=== PATIENT | female | born 1940 | race Caucasian/White ===

== ENCOUNTER 2022-01-31 05:48 | Inpatient (IN) ==
[2022-01-31] MEDS ORDERED: LACTATED RINGERS 1,000 ML IV SCH (06:00)
[2022-01-31] MEDS ORDERED: VANCOMYCIN INJ 1,000 MG in SODIUM CHLORIDE 0.9% 250 ML IV ONE (06:30)
[2022-01-31 07:24] LABS: Mucus,Urine Occasional /LPF (Occasional); RBC,Urine 1 /HPF (0-4); Squamous Epithelial Cell,Urine Occasional /HPF (0-10); Urine Appearance Clear (Clear); Urine Color Yellow (Yellow); Urine pH 5.5 (4.5-8.0)
[2022-01-31 07:25] LABS: Bilirubin,Urine Negative (Negative); Blood, Urine Negative (Negative); Glucose,Urine (UA) Negative (Negative); Ketones,Urine Negative (Negative); Nitrite,Urine Negative (Negative); Protein,Urine Negative (Negative); Urine Urobilinogen 0.2 eU/dL (<2.0)
[2022-01-31 07:30] LABS: PT Patient Result 10.9 SECS (10.1-12.1); Partial Thromboplastin Time 29.6 SECS (23.7-32.9)
[2022-01-31] MEDS ORDERED: BUPIVACAINE SPINAL 0.75% 2 ML AMP SPINAL ONE (08:20)
[2022-01-31] MEDS ORDERED: buprenorphine HCL 0.3 MG/ML VIAL ONE (08:20)
[2022-01-31] MEDS ORDERED: KETAMINE 500 MG/10 ML VIAL ONE (08:20)
[2022-01-31] MEDS ORDERED: fentaNYL 100 MCG/2 ML VIAL ONE (08:20)
[2022-01-31] MEDS ORDERED: SODIUM CHLORIDE 0.9% 250 ML IV ONE (08:20)
[2022-01-31] MEDS ORDERED: TRANEXAMIC ACID 1,000 MG/10 ML VIAL ONE (08:20)
[2022-01-31] MEDS ORDERED: MIDAZOLAM 2 MG/2 ML VIAL ONE (08:20)
[2022-01-31] MEDS ORDERED: ONDANSETRON 4 MG/2 ML VIAL ONE (08:20)
[2022-01-31] MEDS ORDERED: propofoL 200 MG/20 ML VIAL IV ONE (08:20)
[2022-01-31] MEDS ORDERED: LIDOCAINE 2% 5 ML VIAL ONE (08:20)
[2022-01-31] MEDS ORDERED: FAMOTIDINE 20 MG TABLET PO STA (09:05)
[2022-01-31] MEDS ORDERED: DEXAMETHASONE 4 MG/1 ML VIAL ONE (09:21)
[2022-01-31] MEDS ORDERED: ROPIVACAINE 0.5% 30 ML VIAL ONE (09:21)
[2022-01-31] MEDS ORDERED: MAGNESIUM HYDROXIDE SUSP 30 ML UDCUP PO PRN (10:23)
[2022-01-31] MEDS ORDERED: diphenhydrAMINE CAP 25 MG CAPSULE PO PRN (10:23)
[2022-01-31] MEDS ORDERED: ZALEPLON 5 MG CAPSULE PO PRN (10:23)
[2022-01-31] MEDS ORDERED: ONDANSETRON 4 MG/2 ML VIAL IV PRN (10:23)
[2022-01-31] MEDS ORDERED: MORPHINE 2 MG/1 ML SYRINGE IV PRN ×2 (10:23)
[2022-01-31] MEDS ORDERED: PHENYLEPHRINE 1 MG/10 ML SYRINGE IV ONE ×2 (10:41→11:19)
[2022-01-31] MEDS ORDERED: LACTATED RINGERS 1,000 ML IV ONE (10:41)
[2022-01-31] MEDS ORDERED: ACETAMINOPHEN INJ 1,000 MG/100 ML VIAL IV ONE (10:41)
[2022-01-31] MEDS ORDERED: GLYCOPYRROLATE 0.4 MG/2 ML VIAL ONE (11:07)
[2022-01-31] MEDS ORDERED: BACITRACIN OINT 0.9 GM PACK TOP ONE (11:20)
[2022-01-31] MEDS: LACTATED RINGERS 1,000 ML IV SCH ×2 (13:35→19:40)
[2022-01-31] MEDS: KETOROLAC 15 MG/1 ML VIAL IV SCH ×3 (13:56→22:07)
[2022-01-31] MEDS: DOCUSATE SODIUM 100 MG CAPSULE PO SCH (21:17)
[2022-02-01 02:48] LABS: Basophils % 0.3 % (0.0-0.8); Hematocrit 33.1 VOL% (35.7-47.0); Hemoglobin 10.8 GM/DL (12.0-16.0); Immature Granulocytes % 0.5 %; Immature Granulocytes Absolute 0.06 #; Lymphocytes # 1.9 10*3/uL (1.4-4.0); Lymphocytes % 16.8 % (21.3-54.2); Mean Corpuscular HGB Conc 32.6 GM/DL (32-36); Mean Corpuscular Volume 94.6 FL (87-102); Monocytes # 0.9 10*3/uL (0.11-0.8); Monocytes % 8.3 % (1.7-12.7); Neutrophils % 74.1 % (38.7-73.9); Platelet Count 175 T/CUMM (130-400); Red Cell Distribution Width 13.1 % (9.3-17.3); White Blood Count 11.2 T/CUMM (4-12)
[2022-02-01 03:04] LABS: Calcium 9.3 MG/DL (8.5-10.1); Osmolality,Calculated 283.4 MOS/KG (273-304); Potassium 3.9 MMOL/L (3.5-5.1)
[2022-02-01] MEDS: FONDAPARINUX 2.5 MG/0.5 ML SYRINGE SUBCUT SCH (04:43)
[2022-02-01] MEDS: CITALOPRAM 20 MG TABLET PO SCH (09:30)
[2022-02-01] MEDS: DOCUSATE SODIUM 100 MG CAPSULE PO SCH ×2 (09:30→21:25)
[2022-02-01] MEDS: ROSUVASTATIN 10 MG TABLET PO SCH (09:31)
[2022-02-01] MEDS: NICOTINE 14 MG/24 HR PATCH TRANSDERM SCH (09:31)
[2022-02-01] MEDS: LOSARTAN 50 MG TABLET PO SCH (09:32)
[2022-02-01] MEDS: PANTOPRAZOLE 40 MG TABLET PO SCH (09:32)
[2022-02-01] MEDS: hydroCHLOROthiazide 12.5 MG CAPSULE PO SCH (09:32)
[2022-02-01] MEDS: LACTATED RINGERS 1,000 ML IV SCH (12:48)
[2022-02-02 03:28] LABS: Basophils # 0.1 10*3/uL (0.0-0.2); Basophils % 0.5 % (0.0-0.8); Eosinophils # 0.3 10*3/uL (0.0-0.87); Eosinophils % 2.8 % (0.00-10.9); Hematocrit 32.1 VOL% (35.7-47.0); Hemoglobin 10.5 GM/DL (12.0-16.0); Immature Granulocytes % 0.5 %; Immature Granulocytes Absolute 0.05 #; Lymphocytes # 2.6 10*3/uL (1.4-4.0); Lymphocytes % 25.7 % (21.3-54.2); Mean Corpuscular HGB Conc 32.7 GM/DL (32-36); Mean Corpuscular Volume 93.9 FL (87-102); Mean Platelet Volume 11.5 FL (9.6-12.0); Monocytes # 1.3 10*3/uL (0.11-0.8); Monocytes % 12.7 % (1.7-12.7); Neutrophils % 57.8 % (38.7-73.9); Platelet Count 161 T/CUMM (130-400); Red Blood Count 3.42 MC/CUMM (3.8-5.5); Red Cell Distribution Width 13.2 % (9.3-17.3); White Blood Count 10.2 T/CUMM (4-12)
[2022-02-02] MEDS: FONDAPARINUX 2.5 MG/0.5 ML SYRINGE SUBCUT SCH (04:44)
[2022-02-02] MEDS: ROSUVASTATIN 10 MG TABLET PO SCH (08:47)
[2022-02-02] MEDS: LOSARTAN 50 MG TABLET PO SCH (08:48)
[2022-02-02] MEDS: PANTOPRAZOLE 40 MG TABLET PO SCH (08:48)
[2022-02-02] MEDS: hydroCHLOROthiazide 12.5 MG CAPSULE PO SCH (08:48)
[2022-02-02] MEDS: DOCUSATE SODIUM 100 MG CAPSULE PO SCH ×2 (08:48→20:32)
[2022-02-02] MEDS: CITALOPRAM 20 MG TABLET PO SCH (08:48)
[2022-02-02] MEDS: NICOTINE 14 MG/24 HR PATCH TRANSDERM SCH (10:50)
[2022-02-03] MEDS: FONDAPARINUX 2.5 MG/0.5 ML SYRINGE SUBCUT SCH (04:54)
[2022-02-03 06:02] LABS: Basophils % 0.3 % (0.0-0.8); Eosinophils # 0.1 10*3/uL (0.0-0.87); Eosinophils % 1.3 % (0.00-10.9); Hemoglobin 11.3 GM/DL (12.0-16.0); Immature Granulocytes % 0.5 %; Immature Granulocytes Absolute 0.05 #; Lymphocytes % 21.3 % (21.3-54.2); Mean Corpuscular HGB Conc 33.2 GM/DL (32-36); Mean Corpuscular Volume 92.4 FL (87-102); Mean Platelet Volume 11.5 FL (9.6-12.0); Monocytes % 10.6 % (1.7-12.7); Platelet Count 171 T/CUMM (130-400); Red Blood Count 3.68 MC/CUMM (3.8-5.5); Red Cell Distribution Width 12.8 % (9.3-17.3); White Blood Count 9.4 T/CUMM (4-12)
[2022-02-03] MEDS ORDERED: MORPHINE 2 MG/1 ML SYRINGE IV PRN (07:31)
[2022-02-03] MEDS: ROSUVASTATIN 10 MG TABLET PO SCH (10:12)
[2022-02-03] MEDS: PANTOPRAZOLE 40 MG TABLET PO SCH (10:12)
[2022-02-03] MEDS: CITALOPRAM 20 MG TABLET PO SCH (10:12)
[2022-02-03] MEDS: DOCUSATE SODIUM 100 MG CAPSULE PO SCH ×2 (10:12→20:59)
[2022-02-03] MEDS: LOSARTAN 50 MG TABLET PO SCH (10:12)
[2022-02-03] MEDS: hydroCHLOROthiazide 12.5 MG CAPSULE PO SCH (10:12)
[2022-02-03] MEDS: NICOTINE 14 MG/24 HR PATCH TRANSDERM SCH (10:13)
[2022-02-04] MEDS: FONDAPARINUX 2.5 MG/0.5 ML SYRINGE SUBCUT SCH (04:49)
[2022-02-04 07:40] VITALS: BP 122/61
[2022-02-04] MEDS: PANTOPRAZOLE 40 MG TABLET PO SCH (08:16)
[2022-02-04] MEDS: DOCUSATE SODIUM 100 MG CAPSULE PO SCH (08:16)
[2022-02-04] MEDS: CITALOPRAM 20 MG TABLET PO SCH (08:16)
[2022-02-04] MEDS: hydroCHLOROthiazide 12.5 MG CAPSULE PO SCH (08:16)
[2022-02-04] MEDS: LOSARTAN 50 MG TABLET PO SCH (08:17)
[2022-02-04] MEDS: ROSUVASTATIN 10 MG TABLET PO SCH (08:17)
[2022-02-04] MEDS: NICOTINE 14 MG/24 HR PATCH TRANSDERM SCH (08:18)
== END 2022-02-04 11:23 | disposition swing bed (61) | DRG 470 ==
LOC: N.SDSINP 05:48 → N.OR 05:48 → N.3E 05:48 → N.SDSINP 05:50 → N.3E 12:18
PROVIDERS: ADMIT Orthopaedic Surgery; ATTEND Orthopaedic Surgery